=== PATIENT | female | born 1955 | race Caucasian/White ===

== ENCOUNTER → 2019-02-21 | Outpatient (CLI) | payer OTHER | LOC: M.ULTRA 12:27 | DX: E04.1 Nontoxic single thyroid nodule (principal); E11.9 Type 2 diabetes mellitus without complications; I10 Essential (primary) hypertension; E78.2 Mixed hyperlipidemia; E66.9 Obesity, unspecified; Z88.1 Allergy status to other antibiotic agents; Z88.8 Allergy status to other drugs, medicaments and biological substances; Z68.30 Body mass index [BMI] 30.0-30.9, adult; Z82.49 Family history of ischemic heart disease and other diseases of the circulatory system; Z83.3 Family history of diabetes mellitus ==

== ENCOUNTER → 2019-11-14 | Outpatient (CLI) | payer OTHER | LOC: M.MRI 08:30 | DX: R90.82 White matter disease, unspecified (principal); G31.9 Degenerative disease of nervous system, unspecified; H53.9 Unspecified visual disturbance; H53.483 Generalized contraction of visual field, bilateral ==

== ENCOUNTER → 2019-12-12 | Outpatient (CLI) | payer OTHER | LOC: M.MRI 12-08 07:48 | DX: G43.109 Migraine with aura, not intractable, without status migrainosus (principal); G45.9 Transient cerebral ischemic attack, unspecified ==